=== PATIENT | female | born 1950 | race Caucasian/White ===

== ENCOUNTER → 2020-02-29 13:04 | Outpatient (CLI) | payer MEDICARE, OTHER, SELFPAY ==
[2020-03-03 06:49] LABS: COVID19 Sendout Not Detected (Not Detect)
== END ==
PROVIDERS: PCP Internal Medicine; Visit Provider Nurse Practitioner
DX: Z11.59 Encounter for screening for other viral diseases (principal)
CPT/HCPCS: 87635

== ENCOUNTER 2020-03-03 08:09 | Day surgery (SDC) | payer MEDICARE, OTHER, SELFPAY ==
--- NOTE | 2020-03-02 17:37 | PM.PREOP ---
Pre-operative Note COVID-19 COVID-19 status: Negative Interval Note History & Physical reviewed/Exam performed by Physician: Yes Changes to H&P: No
--- NOTE | 2020-03-03 07:46 | PM.OP.1 ---
Operative Date/Time/Diagnoses Date of procedure: 03/03/20 Time of procedure: 09:45 Procedure & Clinicians Procedure: Preoperative diagnoses: 1. Right significant nuclear sclerotic and cortical cataract. 2. Previous PRK refractive surgery with a thin cornea. 3. Glaucoma suspect. 4. Previous chalazion drainage, now resolved right eye. 5. Hypothyroidism. Postoperative diagnoses: 1. Cataract removed by phacoemulsification with placement of posterior chamber intraocular lens. Procedure: Phacoemulsification with posterior chamber intraocular lens implant Surgeon: Vera Weller MD Complications: None Specimen: None Implant: ZCBOO+22.5,target -0.75 diopters due to refractive surgery Blood loss: None Anesthesia: Retrobulbar with monitored standby Description of procedure: Patient presents with a complaint of decreased vision due to cataract which is affecting activities of daily living. Distance is blurred at all distances. She has had PRK with a thin cornea and there is variability on IOL options. Multiple calculations were made with a slight myopic target the safest as she would like distance uncorrected vision after surgery. The patient wants surgery to improve vision. The patient was taken to the operating room and given IV sedation. A retrobulbar block consisting of 6 cc of 2% xylocaine without epinephrine mixed half and half with 0.5% Marcaine with 1 cc of hyaluronidase added is placed between the medial and lateral 1/3 of the inferior orbital rim. The eye is manually massaged for 30 sec, prepped using Betadine solution, and draped in the usual sterile fashion. There was still slight discomfort and awareness of the light to so lidocaine gel 1% was placed on the anterior. This was also done to help after PRK corneal haze Temporal approach was made, a 1 mm side-port incision was made 90? from the proposed clear corneal incision position. Phenylephrine 1.5% mixed with 1% xylocaine 0.2 cc was placed into the anterior chamber. Viscoat followed by Brittany was then placed. A 2.6 mm clear incision with a 2.6 mm blade was placed. A 360 degree capsulorrhexis style capsulotomy was then performed with a cystitome needle on a Viewexon. Hydrodelineation and hydrodissection were performed. The phacoemulsification unit is introduced, and sculpting notice used to groove the central lens. It is then removed in chopping mode. Epi nucleus is removed with epinuclear mode and irrigation aspiration was used to remove the peripheral cortex. The posterior capsule is polished. The intraocular lens is selected, inspected, power confirmed, and placed in the posterior chamber. The wound was stromally hydrated and tested for leaks, there was none and it was left sutureless. Vigamox 0.1 cc was placed into the anterior chamber. Kenalog 0.2 cc was placed in the superior subconjunctival space. A drop of antibiotic and was placed and the eye was patched and shielded. The patient was stable and returned to the recovery room in excellent condition. Dictated by: Vera Weller MD Copy to: [facility] Same procedure as scheduled: Yes
[2020-03-03] MEDS: PROPARACAINE 0.5% OPHTH SOL 2 DROPS EYE-OP (08:25)
[2020-03-03 08:27] VITALS: BP 157/89; PULSE 81; RESP 16; TEMP 37.1; O2SAT 99; BMI 30.7
[2020-03-03] MEDS: CATARACT EYE COMPOUND (10 DROPS/SYRINGE) 3 DROPS EYE-OP (08:30)
[2020-03-03] MEDS: LIDOCAINE 2% 4 ML, BUPIVACAINE 0.5% (PF) 4 ML, HYALURONIDASE 150 UNIT INJ (10:01)
[2020-03-03] MEDS: ERYTHROMYCIN OPHTH 1 GM OINT 1 APPLIC EYE-RIGHT (10:17)
[2020-03-03] MEDS: HYALURONATE SODIUM 10 MG/ML SYRINGE INJ (10:17)
[2020-03-03] MEDS: CHONDROIDTIN/SOD HYALURONATE 1.05 ML SYRINGE INTRAOCULA (10:17)
[2020-03-03] MEDS: MOXIFLOXACIN INJ 5 MG/ML VIAL EYE-OP (10:18)
[2020-03-03] MEDS: PHENYLEPHRINE/LIDOCAINE VIAL (OR) 0.2 ML EYE-OP (10:18)
[2020-03-03] MEDS: TRIAMCINOLONE 50 MG/5 ML VIAL INJ (10:18)
[2020-03-03] MEDS: BALANCED SALT IRRIG SOLN NO.2 500 ML, EPINEPHrine 1 MG IRR (10:20)
[2020-03-03] MEDS: LIDOCAINE JELLY 2% 5 ML 1 APPLIC TOP (10:22)
[2020-03-03 10:49] VITALS: BP 140/100; PULSE 78; RESP 16; TEMP 37.1; O2SAT 100
[2020-03-03 11:07] VITALS: BP 150/86; PULSE 75; RESP 16; TEMP 37.3; O2SAT 99
== END 2020-03-03 11:13 | disposition home or self-care (01) ==
PROVIDERS: Referring Provider Ophthalmology; Visit Provider Ophthalmology
PROC: (CPT 66984; principal; 2020-03-03 09:45)
DX: H25.811 Combined forms of age-related cataract, right eye (principal); H40.009 Preglaucoma, unspecified, unspecified eye; H40.013 Open angle with borderline findings, low risk, bilateral; H35.3132 Nonexudative age-related macular degeneration, bilateral, intermediate dry stage; H17.82 Peripheral opacity of cornea; E03.9 Hypothyroidism, unspecified
CPT/HCPCS: 66984; J0171; J2704; J3301; J3470